=== PATIENT | male | born 1990 | race African-American/Black ===

== ENCOUNTER 2017-02-20 05:47 | Emergency (ER) | payer OTHER ==
[2017-02-20 05:56] VITALS: TEMP 98; BMI 27.0
[2017-02-20] MEDS ORDERED: IBUPROFEN 400 MG TABLET (FP) PO ONE ×2 (05:58→06:06)
--- NOTE | 2017-02-20 05:58 | PDOC ---
History of Present Illness - General History Source: Patient Exam Limitations: No Limitations - History of Present Illness Initial Comments: 02/20/17 06:02 The patient is a 26 year old male with no significant past medical history, who presents to the ER with gradually worsening left shoulder pain for three days. Patient states he developed left shoulder pain three days ago, and believed it was a rotator cuff injury. He said he massaged the area but the pain gradually worsened. On interview, patient admits that he is not able to move the left arm. Patient says he is right handed. Patient denies taking anything for pain. Denies numbness, weakness, paresthesia Denies trauma or sleeping on the left arm Denies chest pain or abdominal pain <Ofelia Ornelas - Last Filed: 02/20/17 06:14> - General History Source: Patient <EdgarOle paredes - Last Filed: 02/20/17 06:24> - General Chief Complaint: Shoulder Dislocation Stated Complaint: LT SHOULDER PAIN Time Seen by Provider: 02/20/17 05:55 Past History <Ofelia Ornelas - Last Filed: 02/20/17 06:14> - Psycho/Social/Smoking Cessation Hx Suicidal Ideation: No Smoking History: Current every day smoker Have you smoked in the past 12 months: Yes Cigars Per Day: 1 Information on smoking cessation initiated: No Hx Alcohol Use: No Drug/Substance Use Hx: No <Ole Aldrich - Last Filed: 02/20/17 06:24> - Past Medical History Allergies/Adverse Reactions: Allergies Allergy/AdvReac Type Severity Reaction Status Date / Time No Known Allergies Allergy Verified 02/20/17 05:53 Home Medications: Ambulatory Orders Cyclobenzaprine HCl [Flexeril 10 mg] 10 mg PO BID PRN #60 tablet MDD 2 02/20/17 Ibuprofen 800 mg PO TID #60 tablet 02/20/17 Oxycodone HCl/Acetaminophen [Percocet 5-325 mg Tablet] 1 - 2 tab PO Q6H #20 tablet MDD 4 02/20/17 Review of Systems - Review of Systems Comments:: 02/20/17 06:02 CONSTITUTIONAL: Absent: fever, no chills, no fatigue EYES: Absent: visual changes ENT: Absent: ear pain, no sore throat CARDIOVASCULAR: Absent: chest pain, no palpitations RESPIRATORY: Absent: cough, no SOB GI: Absent: abdominal pain, no nausea, no vomiting, no constipation, no diarrhea GENITOURINARY: Absent: dysuria, no frequency, no hematuria MUSCULOSKELETAL: Present: (+) left shoulder pain Absent: back pain, no arthralgia, no myalgia SKIN: Absent: rash NEURO: Absent: headache <AztatumOfelia - Last Filed: 02/20/17 06:14> *Physical Exam - Vital Signs Last Vital Signs Temp Pulse Resp BP Pulse Ox 98.0 F 64 14 143/107 100 02/20/17 05:54 02/20/17 05:54 02/20/17 05:54 02/20/17 05:54 02/20/17 05:54 - Physical Exam Comments: 02/20/17 06:03 GENERAL: Well-appearing, well-nourished. No apparent distress. HEENT: Normocephalic, atraumatic. PERRL, EOM intact. CARDIOVASCULAR: Normal S1, S2. Regular rate and rhythm. PULMONARY: Clear to auscultation bilaterally. ABDOMEN: Soft, non-distended, non-tender. EXTREMITIES: Diffuse tenderness of the left shoulder. Mild swelling in the area compared to right side. Decreased ROM to the left shoulder secondary to pain. No gross deformities. SKIN: Warm, dry. No rash NEUROLOGICAL: No focal neurological deficits. <[facility] - Last Filed: 02/20/17 06:14> - Vital Signs Last Vital Signs Temp Pulse Resp BP Pulse Ox 98.0 F 64 14 143/107 100 02/20/17 05:54 02/20/17 05:54 02/20/17 05:54 02/20/17 05:54 02/20/17 05:54 <Ole Aldrich - Last Filed: 02/20/17 06:24> ED Treatment Course - RADIOLOGY Radiograph Interpretation: 02/20/17 06:14 Foot XR impression reported by Dr. Karolyn Maciel M.D.: No acute fracture or dislocation. No radiopaque foreign body. Moderate soft tissue swelling over lateral malleolus. Soft tissue fullness anterior and posterior to ankle joint, possibly an ankle effusion. Small soft tissue calcification posterior ankle soft tissues. <[facility] - Last Filed: 02/20/17 06:14> *DC/Admit/Observation/Transfer - Attestations Scribe Attestion: 02/20/17 06:04 Documentation prepared by Ofelia Ornelas, acting as medical affairs specialist for Ole Aldrich DO. <Ofelia Ornelas - Last Filed: 02/20/17 06:14> - Discharge Dispostion Admit: No <Ole Aldrich - Last Filed: 02/20/17 06:24> Diagnosis at time of Disposition: Shoulder pain, left Qualifiers: Chronicity: acute Qualified Code(s): M25.512 - Pain in left shoulder Frozen shoulder Qualifiers: Laterality: left Qualified Code(s): M75.02 - Adhesive capsulitis of left shoulder - Discharge Dispostion Disposition: HOME Condition at time of disposition: Stable - Referrals Referrals: Richard Carmichael MD [Staff Physician] - - Patient Instructions Printed Discharge Instructions: DI for Frozen Shoulder, DI for Shoulder Pain
[2017-02-20] MEDS ORDERED: CYCLOBENZAPRINE HCL 10 MG TABLET (FP) PO ONE (06:17)
[2017-02-20] MEDS ORDERED: CYCLOBENZAPRINE HCL 10 MG TABLET (FP) ONE (06:18)
[2017-02-20 06:36] VITALS: BP 138/89; PULSE 96
== END 2017-02-20 06:36 | disposition home or self-care (01) ==
LOC: JER 05:47
DX: M25.512 Pain in left shoulder (principal); M75.02 Adhesive capsulitis of left shoulder; F17.210 Nicotine dependence, cigarettes, uncomplicated
CPT/HCPCS: 73030-TC-LT; 99283-25

== ENCOUNTER → 2017-03-05 | Emergency (ER) | payer OTHER ==
[~2017-03-05] MED LIST: KETOROLAC TROMETHAMINE 60 MG/2 ML VIAL IM ONE; KETOROLAC TROMETHAMINE 60 MG/2 ML VIAL ONE
[2017-03-05 01:23] VITALS: TEMP 97.9; BMI 26.7
--- NOTE | 2017-03-05 03:43 | PDOC ---
History of Present Illness - General Chief Complaint: Pain, Acute Stated Complaint: RT SHOULDER PAIN Time Seen by Provider: 03/05/17 00:23 - History of Present Illness Initial Comments: 03/05/17 03:39 CHIEF COMPLAINT: shoulder pain HISTORY OF PRESENT ILLNESS: 26 yo M with no PMH presents to ED with pain to R shoulder s/p falling on shoulder while doing backflips with daughter earlier this evening. Patient states that the pain is "maybe somewhere on my clavicle or something, but it's excruciating." Patient denies any loss of sensation to arm, hand, or fingers. No recent travel or sick contacts. PAST MEDICAL HISTORY: Denies past medical history FAMILY HISTORY: Denies SOCIAL HISTORY: Denies tobacco, alcohol, illicit drug use. SURGICAL HISTORY: Denies ALLERGIES: No known drug allergies REVIEW OF SYSTEMS General/Constitutional: Denies fever or chills. Denies weakness, weight change. HEENT: Denies change in vision. Denies ear pain or discharge. Denies sore throat. Cardiovascular: Denies chest pain or shortness of breath. Respiratory: Denies cough, wheezing, or hemoptysis. Gastrointestinal: Denies nausea, vomiting, diarrhea or constipation. Denies rectal bleeding. Genitourinary: Denies dysuria, frequency, or change in urination. Musculoskeletal: Pain to right shoulder. Denies joint or muscle swelling or pain. Denies neck or back pain. Skin and breasts: Denies rash or easy bruising. Neurologic: Denies headache, vertigo, loss of consciousness, or loss of sensation. PHYSICAL EXAM General Appearance: Well-appearing, appropriately dressed. No apparent distress , no intoxication. HEENT: EOMI, PERRLA, normal ENT inspection, normal voice, TMs normal, pharynx normal. No conjunctival pallor. No photophobia, scleral icterus. Neck: No midline tendernes to cervical spine. Supple. Trachea midline. No tenderness, rigidity, carotid bruit, stridor, lymphadenopathy, or thyromegaly. Respiratory/Chest: Lungs CTAB. Cardiovascular: RRR. S1, S2. Musculoskeletal/Extremities: Tenderness to R shoulder, limited ROM secondary to pain. No swelling or deformity appreciated. No midline tenderness to thoracic or lumbar spine. FROM of all other extremities, normal capillary refill. Pelvis Stable. No CVA tenderness. No tenderness to extremities, pedal edema, swelling, erythema or deformity. Integumentary: Appropriate color, dry, warm. No cyanosis, erythema, jaundice or rash Neurologic: tourist adviser II-XII intact. Fully oriented, alert. Appropriate mood/affect. Motor strength 5/5. No appreciable EOM palsy, facial droop or sensory deficit. 03/05/17 04:26 Past History - Past Medical History Allergies/Adverse Reactions: Allergies Allergy/AdvReac Type Severity Reaction Status Date / Time No Known Allergies Allergy Verified 02/20/17 05:53 Home Medications: Ambulatory Orders Naproxen [Naprosyn -] 500 mg PO BID #14 tablet 03/05/17 - Psycho/Social/Smoking Cessation Hx Anxiety: No Suicidal Ideation: No Smoking History: Unknown if ever smoked Have you smoked in the past 12 months: Yes Cigars Per Day: 1 Hx Alcohol Use: No Drug/Substance Use Hx: No Substance Use Type: None *Physical Exam - Vital Signs Last Vital Signs Temp Pulse Resp BP Pulse Ox 97.9 F 84 18 150/90 99 03/05/17 00:18 03/05/17 00:18 03/05/17 00:18 03/05/17 00:18 03/05/17 00:18 ED Treatment Course - RADIOLOGY Radiology Studies Ordered: Category Date Time Status SHOULDER-RIGHT [RAD] Stat Radiology 03/05/17 00:50 Taken - Medications Given in the ED: ED Medications Discontinued Medications Generic Name Dose Route Start Last Admin Trade Name Freq PRN Reason Stop Dose Admin Ketorolac Tromethamine 60 mg 03/05/17 00:50 03/05/17 01:09 Toradol Injection - IM 03/05/17 00:51 60 mg ONCE ONE Administration Medical Decision Making - Medical Decision Making 03/05/17 03:40 26 yo M wiht no PMH presents to ED with pain to R shoulder s/p falling on shoulder while doing backflips with daughter. -R shoulder x-ray -60 mg IM TOradol X-ray negative for fracture or dislocation Advised patient to rubi medications as prescribed and to follow up with ortho for possible MRI and/or PT. Advised patient of signs and symptoms for return to ER; patient verbalized understanding and agrees to plan *DC/Admit/Observation/Transfer Diagnosis at time of Disposition: Shoulder injury Qualifiers: Encounter type: initial encounter Laterality: right Qualified Code(s): S49.91XA - Unspecified injury of right shoulder and upper arm, initial encounter - Discharge Dispostion Admit: No - Prescriptions Prescriptions: Naproxen [Naprosyn -] 500 mg PO BID #14 tablet - Referrals Referrals: Richard Carmichael MD [Staff Physician] - - Patient Instructions Additional Instructions: Please take medication as prescribed. Follow up with orthopedics by the end of this week for a possible MRI and/or physical therapy for your shoulder injury. If you feel any loss of sensation, numbness, or tingling to your arm, or feel like your shoulder is "frozen," or you develop any new or worsening symptoms, please return to the ER.
[2017-03-05 04:05] VITALS: BP 123/73; PULSE 79
== END | disposition home or self-care (01) ==
LOC: JER 00:01
PROC: 3E0333Z Introduction of Anti-inflammatory into Peripheral Vein, Percutaneous Approach (ICD-10-PCS; principal; 2017-03-05)
DX: S49.91XA Unspecified injury of right shoulder and upper arm, initial encounter (principal); W19.XXXA Unspecified fall, initial encounter; Y93.79 Activity, other specified sports and athletics; Y92.9 Unspecified place or not applicable
CPT/HCPCS: 73030-TC-RT; 99283-25

== ENCOUNTER 2018-12-26 11:07 | Emergency (ER) | payer OTHER ==
[2018-12-26 11:18] VITALS: BP 116/79; PULSE 87; TEMP 98.3; BMI 53.4
[2018-12-26] MEDS ORDERED: DIPHTH,PERTUSS(ACELL),TET 0.5 ML DISP.SYRIN IM ONE ×2 (11:58→12:39)
--- NOTE | 2018-12-26 11:59 | PDOC ---
History of Present Illness - General Chief Complaint: Injury Stated Complaint: INJURY LT HAND Time Seen by Provider: 12/26/18 11:23 History Source: Patient Exam Limitations: No Limitations Past History - Travel Traveled outside of the country in the last 30 days: No Close contact w/someone who was outside of country & ill: No - Past Medical History Allergies/Adverse Reactions: Allergies Allergy/AdvReac Type Severity Reaction Status Date / Time No Known Allergies Allergy Verified 12/26/18 11:18 Home Medications: Ambulatory Orders Amox-Tr/K Cl [Augmentin - 875Mg Tablet] 1 tab PO BID #14 tablet 12/26/18 Ibuprofen 600 mg PO Q6H #30 tablet 12/26/18 COPD: No - Suicide/Smoking/Psychosocial Hx Smoking History: Current every day smoker Have you smoked in the past 12 months: Yes Number of Cigarettes Smoked Daily: 1 Cigars Per Day: 1 Information on smoking cessation initiated: No Hx Alcohol Use: No Drug/Substance Use Hx: No Substance Use Type: None Review of Systems - Review of Systems Able to Perform ROS?: Yes Comments:: 12/26/18 12:34 CONSTITUTIONAL: Absent: fever, chills, diaphoresis, generalized weakness, malaise, loss of appetite MUSCULOSKELETAL: Present: L hand pain Absent: myalgia, arthralgia, joint swelling SKIN: Present: dog bite Absent: rash, itching, pallor HEMATOLOGIC/IMMUNOLOGIC: Absent: easy bleeding, easy bruising, lymphadenopathy, frequent infections ENDOCRINE: Absent: unexplained weight gain, unexplained weight loss, heat intolerance, cold intolerance NEUROLOGIC: Absent: headache, focal weakness or paresthesias, dizziness, unsteady gait, seizure, mental status changes, bladder or bowel incontinence PSYCHIATRIC: Absent: anxiety, depression, suicidal or homicidal ideation, hallucinations. Is the patient limited Vietnamese proficient: No *Physical Exam - Vital Signs Last Vital Signs Temp Pulse Resp BP Pulse Ox 98.3 F 87 18 116/79 99 12/26/18 11:11 12/26/18 11:11 12/26/18 11:11 12/26/18 11:11 12/26/18 11:11 - Physical Exam Comments: 12/26/18 12:50 GENERAL: The patient is awake, alert, and fully oriented, in no acute distress. HEAD: Normal with no signs of trauma. EYES: Pupils equal, round and reactive to light, extraocular movements intact, sclera anicteric, conjunctiva clear. EXTREMITIES: Mild edema noted to the L lateral hand. Full ROM of the L lateral hand and all fingers can perform opposition maneuvers. Normal range of motion, no edema. NEUROLOGICAL: Normal speech, normal gait. PSYCH: Normal mood, normal affect. SKIN: Four bite ray to the L dorsal hand. No active bleeding. Warm, Dry, normal turgor, no rashes or lesions noted. Medical Decision Making - Medical Decision Making 12/26/18 12:54 The patient is a 28-year-old male with no past medical history who presents to the ER with a dog bite to his left hand. 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 The patient states that the dog does have its rabies vaccinations and that the dog can be monitored over the next 10 days. Patient states that pain hurts over the left fifth carpal bone. Denies fevers, chills, numbness and tingling to the extremity and weakness the affected extremity. A/P: Dog bite Patient with 4 bite ray to the left dorsal fifth carpal bone. No bleeding at this time. Patient can perform opposition maneuvers with all fingers. X-ray obtained of the hands fractures. Wound was cleaned with chlorhexidine scrub. Tetanus updated. Augmented started Discharge home with planned follow-up I discussed the physical exam findings, ancillary test results and final diagnoses with the patient. I answered all of the patient's questions. The patient was satisfied with the care received and felt comfortable with the discharge plan and treatment plan. The Patient agrees to follow up with the primary care physician/specialist within 24-72 hours. Return precautions were given. *DC/Admit/Observation/Transfer Diagnosis at time of Disposition: Dog bite Qualifiers: Encounter type: initial encounter Qualified Code(s): W54.0XXA - Bitten by dog, initial encounter - Discharge Dispostion Disposition: HOME Condition at time of disposition: Stable Decision to Admit order: No - Prescriptions Prescriptions: Amox-Tr/K Cl [Augmentin - 875Mg Tablet] 1 tab PO BID #14 tablet Ibuprofen 600 mg PO Q6H #30 tablet - Referrals Referrals: Richard Carmichael MD [Staff Physician] - - Patient Instructions Printed Discharge Instructions: DI for Animal Bites Additional Instructions: You were bit by a dog Keep the area clean and dry Rabies shots were not indicated today as you can monitor the dog/it is up to date on its rabies vaccines Take the augmentin as directed You may take Motrin 600mg every 6 hours as needed for pain or swelling Your tetanus shot was updated today Return to the ER for worsening hand pain, fever, swelling or redness to the site , purulent drainage, or if you have any changes in your symptoms - Post Discharge Activity Forms/Work/School Notes: Back to Work
== END 2018-12-26 13:13 | disposition home or self-care (01) ==
LOC: JERFT 11:07
PROC: 3E0234Z Introduction of Serum, Toxoid and Vaccine into Muscle, Percutaneous Approach (ICD-10-PCS; principal; 2018-12-26)
DX: S61.452A Open bite of left hand, initial encounter (principal); W54.0XXA Bitten by dog, initial encounter; Y93.89 Activity, other specified; Y92.89 Other specified places as the place of occurrence of the external cause; Y99.8 Other external cause status
CPT/HCPCS: 73130-TC-RT-FY; 90471; 90715; 99281-25

== ENCOUNTER 2023-03-03 13:48 | Emergency (ER) | payer OTHER ==
[2023-03-03 13:59] VITALS: BP 129/84; PULSE 92; RESP 20; TEMP 97.6; BMI 25.5
[2023-03-03] MEDS ORDERED: DIPHTH,PERTUSS(ACELL),TET 0.5 ML DISP.SYRIN IM ONE ×2 (15:11)
== END 2023-03-03 16:39 | disposition home or self-care (01) ==
LOC: JERFT 13:48 → JER 13:48 → JERFT 16:39
PROC: 0HQFXZZ Repair Right Hand Skin, External Approach (ICD-10-PCS; principal; 2023-03-03)
DX: M79.641 Pain in right hand (principal); R22.31 Localized swelling, mass and lump, right upper limb; S61.212A Laceration without foreign body of right middle finger without damage to nail, initial encounter; W01.198A Fall on same level from slipping, tripping and stumbling with subsequent striking against other object, initial encounter
CPT/HCPCS: 73130-TC-RT-FY; 99283-25

== ENCOUNTER 2023-07-07 18:12 | Emergency (ER) | payer OTHER ==
[2023-07-07 18:26] VITALS: BP 130/72; PULSE 60; RESP 18; TEMP 98.3; BMI 25.1
[2023-07-07] MEDS ORDERED: ACETAMINOPHEN 500 MG TABLET (FP) PO ONE (18:59)
[2023-07-07] MEDS ORDERED: IBUPROFEN 600 MG TABLET (FP) PO ONE ×2 (19:00→19:05)
[2023-07-07] MEDS ORDERED: AMOXICILLIN 500 MG CAPSULE (FP) PO ONE (19:00)
[2023-07-07] MEDS ORDERED: AMOXICILLIN 250 MG CAPSULE ONE (19:05)
[2023-07-07] MEDS ORDERED: ACETAMINOPHEN 500 MG TABLET (FP) ONE (19:06)
== END 2023-07-07 19:30 | disposition home or self-care (01) ==
LOC: JERFT 18:12 → JER 18:12 → JERFT 19:30
DX: K08.89 Other specified disorders of teeth and supporting structures (principal)
CPT/HCPCS: 99283-25

== ENCOUNTER 2023-09-16 20:32 | Emergency (ER) | payer OTHER ==
[2023-09-16 20:35] VITALS: BP 124/76; PULSE 76; RESP 18; TEMP 98.4; BMI 25.7
[2023-09-16] MEDS ORDERED: AMOX TR/POT CLAV 875MG/125MG TABLETS (FP) PO ONE (23:40)
[2023-09-16] MEDS ORDERED: ACETAMINOPHEN 500 MG TABLET (FP) PO ONE (23:40)
[2023-09-16] MEDS ORDERED: IBUPROFEN 400 MG TABLET (FP) PO ONE (23:40)
[2023-09-17] MEDS ORDERED: IBUPROFEN 400 MG TABLET (FP) PO ONE (00:03)
[2023-09-17] MEDS ORDERED: ACETAMINOPHEN 500 MG TABLET (FP) ONE (00:03)
[2023-09-17] MEDS ORDERED: AMOX TR/POT CLAV 875MG/125MG TABLETS (FP) ONE (00:03)
== END 2023-09-17 00:11 | disposition home or self-care (01) ==
LOC: JER 20:32 → JERFT 20:32
DX: K08.89 Other specified disorders of teeth and supporting structures (principal)
CPT/HCPCS: 99283-25